=== PATIENT | female | born 1975 | race Caucasian/White ===

== ENCOUNTER → 2021-04-22 | Outpatient (CLI) | payer BC ==
--- NOTE | 2021-05-08 17:02 | KCIC ---
Bilateral digital screening mammograms with 3-D tomosynthesis: Reason for examination: Routine screening. No previous exams for comparison. New baseline. Bilateral mammograms in CC and oblique projections were obtained with 2-D imaging and 3-D tomosynthes is imaging on a Siemens Inspiration unit and reviewed on the workstation. Interpretation was made wit h the benefit of CAD. The skin and nipples show no abnormalities. No abnormal axillary lymph nodes are seen. The breast par enchyma shows scattered fatty and fibroglandular density. (Breast density: Category B.) There is a sm all 5 mm nodule present in the right breast 5:00 B position. Further evaluation with ultrasound is re commended. There is a small 8.4 mm nodule at the central 12:00 B position of the right breast 9 cm fr om the nipple There is also small nodule probably representing intramammary lymph node at the 10:00 B position of the right breast. This can also be evaluated with ultrasound. There also appears to be a small 5.8 mm nodule at approximately the 6:00 position of the left breast 9 cm posterior to the nipp le. This can be further evaluated with ultrasound. No suspicious calcifications are seen.. Impression: Small nodules bilaterally. Recommend further evaluation with ultrasound. BI-RAD Category 0: Incomplete. Needs additional imaging evaluation. "Our facility is accredited by the [employer] Mammography [employer]." This patient's information has been entered into a reminder system for the patient to be notified wit h the results of her examination and a target date for the next mammogram. Electronically signed by: Dea Piedra MD (05/08/2021 5:00 PM) [id number]
== END ==
LOC: KCIC 15:03
PROVIDERS: ATTEND Family Medicine
DX: Z12.31 Encounter for screening mammogram for malignant neoplasm of breast (principal); N63.41 Unspecified lump in right breast, subareolar; N63.14 Unspecified lump in the right breast, lower inner quadrant
CPT/HCPCS: 77063; 77067

== ENCOUNTER → 2021-05-27 | Outpatient (CLI) | payer BC ==
--- NOTE | 2021-05-27 15:14 | KCIC ---
Bilateral breast ultrasound: Reason for examination: Nodules on screening mammogram. Comparison is made to mammographic exam dated 04/22/2021. Ultrasound examination of the breasts and axilla was performed bilaterally. In the right breast, there are are 2 small hypoechoic fibrocystic type lesions at the 12:00 position 7.5 cm from the nipple measuring 5 mm and 7.8 mm in greatest dimension. On the cine images of the rig ht breast at the 5:00 B position, there is a subtle 3 mm hypoechoic fibrocystic type lesion. At the 1 0:00 position, no discrete cystic or solid nodule is seen. The nodule seen mammographically however m ay represent an intramammary lymph node which is obscured by the breast parenchyma. No abnormal appea ring lymph nodes are seen in the right axilla. In the left breast, there is a 9 mm hypoechoic circumscribed lesion probably representing fibroadenom a at the 6:00 position 6 cm from the nipple. No other cystic or solid nodules are seen. No abnormal a ppearing lymph nodes are seen in the left axilla. IMPRESSION: Benign-appearing fibrocystic type lesions at the 12:00 and 5:00 positions of the right breast. 9 mm nodule probably representing a fibroadenoma in the 6:00 position of the left breast. Recommend follow-up of the right breast with mammograms and ultrasound. Recommend follow-up of the le ft breast with ultrasound. BI-RADS Category 3: Probably Benign. "Our facility is accredited by the [employer] Mammography Program." This patient's information has been entered into a reminder system for the patient to be notified wit h the results of her examination and a target date for the next mammogram. Electronically signed by: Dea Piedra MD (05/27/2021 3:11 PM) [id number]
== END ==
LOC: KCIC US 13:54
PROVIDERS: ATTEND Family Medicine
DX: N63.24 Unspecified lump in the left breast, lower inner quadrant (principal); N64.89 Other specified disorders of breast
CPT/HCPCS: 76641